=== PATIENT | female | born 1960 | race Caucasian/White ===

== ENCOUNTER 2018-12-17 10:13 | Outpatient (CLI) | payer OTHER ==
[2018-12-17] MEDS ORDERED: NONE PER PT (10:41)
== END 2018-12-17 23:59 | disposition home or self-care (01) ==
LOC: STAR 10:13
PROVIDERS: ATTEND Obstetrics & Gynecology Female Pelvic Medicine and Reconstructive Surgery
DX: Z02.9 Encounter for administrative examinations, unspecified (principal)